=== PATIENT | female | born 1985 | race Caucasian/White ===

== ENCOUNTER 2021-09-21 10:30 | Outpatient (CLI) | payer BC ==
[2021-09-21 12:55] LABS: Hemoglobin 13.9 g/dL (12.0-15.5); Mean Corpuscular HGB CONC 32.7 g/dL (32.0-36.0); Mean Corpuscular Hemoglobin 29.4 pg (27.0-33.0); Mean Platelet Volume 10.2 fl (7.4-10.4); Platelet Count 289 10x3/uL (150-450); RBC Distribution Width 11.9 % (11.5-14.5); Red Blood Cell (RBC) Count 4.72 10x6/uL (3.90-5.03); White Blood Cell (WBC) Count 6.2 10x3/uL (3.5-10.5)
[2021-09-21 13:02] LABS: Bilirubin Neg (Negative); Blood, Urine Negative (Negative); Glucose, Urine (Dipstick) Normal (Negative); Ketone, Urine Negative (Negative); Leukocyte Negative (Negative); Nitrite Negative (Negative); Protein, Urine (Dipstick) Negative (Neg-Trace); Specific Gravity, Urine 1.005 (1.002-1.036); Urobilinogen Normal mg/dL (Less than 2)
[2021-09-21 13:03] LABS: Clarity Clear (Clear)
[2021-09-21 13:42] LABS: BHCG - Serum Negative (NEGATIVE); Pregs Control Background? CLEAR/WHITE (CLR/WHITE); Pregs Control Bar Appear? YES (CONTROL BAR)
[2021-09-22 01:29] LABS: SARS-CoV-2 PCR by NAA Not Detected (NotDetected)
== END 2021-09-21 10:31 | disposition home or self-care (01) ==
LOC: CSHLAB 10:30
PROVIDERS: ATTEND Obstetrics & Gynecology
DX: Z01.812 Encounter for preprocedural laboratory examination (principal); Z20.822 Contact with and (suspected) exposure to COVID-19; N39.3 Stress incontinence (female) (male)
CPT/HCPCS: 81003; 84703; 85027; U0003; U0005

== ENCOUNTER 2021-09-24 05:24 | Observation (INO) | payer BC ==
[2021-09-22 15:35] VITALS: BMI 24.3
[2021-09-24] MEDS ORDERED: Lidocaine 1% MPF 2 ML VIAL ONE (06:10)
[2021-09-24] MEDS ORDERED: Rocuronium Bromide 10 MG/ML (10ML VIAL) ONE (06:15)
[2021-09-24] MEDS ORDERED: Dexamethasone 4 mg/ml Vial ONE (06:15)
[2021-09-24] MEDS ORDERED: Midazolam HCl 2 mg/2 ml Vial ONE ×2 (06:15→06:50)
[2021-09-24] MEDS ORDERED: Fentanyl 250 MCG/5 ML VIAL ONE (06:15)
[2021-09-24] MEDS ORDERED: Ketorolac Tromethamine 30 MG/ML VIAL ONE (06:15)
[2021-09-24] MEDS ORDERED: Lidocaine 1% PF 5 ML VIAL ONE (06:15)
[2021-09-24] MEDS ORDERED: PROPOFOL 20 ML ONE ×2 (06:15)
[2021-09-24] MEDS ORDERED: Ondansetron PF 4 MG/2 ML Vial ONE (06:15)
[2021-09-24] MEDS ORDERED: Lidocaine 4% PF 5 ML AMP ONE (06:16)
[2021-09-24] MEDS ORDERED: Glycopyrrolate 0.2 MG/ML 5 ML SYRINGE ONE (06:18)
[2021-09-24] MEDS ORDERED: EPINEPHrine 1 MG/ML AMP ONE (06:28)
[2021-09-24] MEDS ORDERED: Bupivacaine PF 0.5% 30 ML VIAL ONE (06:28)
[2021-09-24] MEDS ORDERED: Bupivacaine 0.25% HCL 30 ML VIAL ONE (06:29)
[2021-09-24] MEDS ORDERED: Scopolamine 1.5 mg/72 hour Patch ONE (06:30)
[2021-09-24] MEDS ORDERED: Fentanyl 100 MCG/2 ML VIAL ONE (11:26)
[2021-09-24] MEDS ORDERED: Zolpidem Tartrate 5 MG TAB PO PRN (11:45)
[2021-09-24] MEDS ORDERED: diphenhydrAMINE 25 MG CAP PO PRN (11:45)
[2021-09-24] MEDS ORDERED: Acetaminophen 325 MG TAB PO SCH (13:30)
[2021-09-24] MEDS ORDERED: Acetaminophen 500 MG TAB PO SCH ×3 (13:30→17:00)
[2021-09-24] MEDS: Morphine 4 MG/ML VIAL SLOW IVP PRN ×3 (13:44→20:48)
[2021-09-24] MEDS: Ondansetron PF 4 MG/2 ML Vial IVP PRN ×2 (13:44→20:42)
[2021-09-24] MEDS: Lactated Ringer's 1,000 ML IV SCH ×2 (13:45→21:47)
[2021-09-24] MEDS: traMADol HCl 50 MG TAB PO PRN (14:00)
[2021-09-24] MEDS: Simethicone Chewable 80 MG TAB PO PRN (14:01)
[2021-09-24] MEDS: Ketorolac Tromethamine 30 MG/ML VIAL IVP SCH ×2 (16:25→21:41)
[2021-09-24] MEDS: Promethazine 25 MG TAB PO PRN (20:59)
[2021-09-25] MEDS: Ketorolac Tromethamine 30 MG/ML VIAL IVP SCH ×2 (04:47→09:39)
[2021-09-25] MEDS: Lactated Ringer's 1,000 ML IV SCH ×3 (06:29→16:40)
[2021-09-25] MEDS: Levothyroxine Sodium 75 MCG TAB PO SCH (06:49)
[2021-09-25 07:03] LABS: Hemoglobin 10.5 g/dL (12.0-15.5); Mean Corpuscular HGB CONC 33.2 g/dL (32.0-36.0); Mean Corpuscular Hemoglobin 30.2 pg (27.0-33.0); Mean Corpuscular Volume 90.8 fl (81.6-98.3); Mean Platelet Volume 9.7 fl (7.4-10.4); Platelet Count 225 10x3/uL (150-450); RBC Distribution Width 11.9 % (11.5-14.5); Red Blood Cell (RBC) Count 3.48 10x6/uL (3.90-5.03); White Blood Cell (WBC) Count 13.2 10x3/uL (3.5-10.5)
[2021-09-25] MEDS: Ondansetron PF 4 MG/2 ML Vial IVP PRN (09:39)
[2021-09-25] MEDS: Simethicone Chewable 80 MG TAB PO PRN (16:27)
[2021-09-25] MEDS: traMADol HCl 50 MG TAB PO PRN ×2 (16:31→21:18)
[2021-09-25] MEDS: Promethazine 25 MG TAB PO PRN (16:31)
[2021-09-25] MEDS: Ibuprofen 800 MG TAB PO SCH (17:59)
[2021-09-26] MEDS: Ibuprofen 800 MG TAB PO SCH ×2 (01:06→09:22)
[2021-09-26 04:19] LABS: Hemoglobin 9.7 g/dL (12.0-15.5); Mean Corpuscular HGB CONC 32.2 g/dL (32.0-36.0); Mean Corpuscular Hemoglobin 29.9 pg (27.0-33.0); Mean Corpuscular Volume 92.9 fl (81.6-98.3); Mean Platelet Volume 9.7 fl (7.4-10.4); Platelet Count 195 10x3/uL (150-450); RBC Distribution Width 12.4 % (11.5-14.5); Red Blood Cell (RBC) Count 3.24 10x6/uL (3.90-5.03); White Blood Cell (WBC) Count 9.8 10x3/uL (3.5-10.5)
[2021-09-26] MEDS: Lactated Ringer's 1,000 ML IV SCH ×2 (04:58→08:26)
[2021-09-26] MEDS: Levothyroxine Sodium 75 MCG TAB PO SCH (06:13)
[2021-09-26] MEDS: traMADol HCl 50 MG TAB PO PRN (09:22)
[2021-09-26] MEDS: Promethazine 25 MG TAB PO PRN (10:30)
[2021-09-26 14:04] VITALS: BP 117/63; TEMP 98.2
== END 2021-09-26 12:32 | disposition home or self-care (01) ==
LOC: CSHSDC 05:24 → CSHPED 12:48
PROVIDERS: ADMIT Obstetrics & Gynecology; ATTEND Obstetrics & Gynecology
PROC: 0UT94ZZ Resection of Uterus, Percutaneous Endoscopic Approach (ICD-10-PCS; principal; 2021-09-24)
PROC: 0UT64ZZ Resection of Left Fallopian Tube, Percutaneous Endoscopic Approach (ICD-10-PCS; 2021-09-24)
PROC: 0U5F4ZZ Destruction of Cul-de-sac, Percutaneous Endoscopic Approach (ICD-10-PCS; 2021-09-24)
PROC: 0U514ZZ Destruction of Left Ovary, Percutaneous Endoscopic Approach (ICD-10-PCS; 2021-09-24)
PROC: 0U564ZZ Destruction of Left Fallopian Tube, Percutaneous Endoscopic Approach (ICD-10-PCS; 2021-09-24)
PROC: 0USG4ZZ Reposition Vagina, Percutaneous Endoscopic Approach (ICD-10-PCS; 2021-09-24)
PROC: 0TSD0ZZ Reposition Urethra, Open Approach (ICD-10-PCS; 2021-09-24)
PROC: 0JQC0ZZ Repair Pelvic Region Subcutaneous Tissue and Fascia, Open Approach (ICD-10-PCS; 2021-09-24)
PROC: 0JQC0ZZ Repair Pelvic Region Subcutaneous Tissue and Fascia, Open Approach (ICD-10-PCS; 2021-09-24)
PROC: 0KQM0ZZ Repair Perineum Muscle, Open Approach (ICD-10-PCS; 2021-09-24)
DX: N80.0 Endometriosis of uterus (principal); N81.3 Complete uterovaginal prolapse; N39.3 Stress incontinence (female) (male); N80.1 Endometriosis of ovary; N80.2 Endometriosis of fallopian tube; N80.3 Endometriosis of pelvic peritoneum; G43.909 Migraine, unspecified, not intractable, without status migrainosus; K21.9 Gastro-esophageal reflux disease without esophagitis; E03.9 Hypothyroidism, unspecified; Z79.899 Other long term (current) drug therapy; Z88.1 Allergy status to other antibiotic agents; Z88.5 Allergy status to narcotic agent; Z91.018 Allergy to other foods; Z91.040 Latex allergy status; Z90.721 Acquired absence of ovaries, unilateral; Z90.79 Acquired absence of other genital organ(s)
CPT/HCPCS: 36415; 85027; 88305; C1713; C1776; C1781; J0171; J0690; J1100; J1885; J2250; J2270; J2405; J2704; J3010; J7120; Q0169; S0020

== ENCOUNTER 2021-10-02 13:56 | Emergency (ER) | payer BC ==
[2021-10-02] MEDS ORDERED: diphenhydrAMINE 50 MG/ML VIAL ONE (15:06)
== END 2021-10-02 15:56 | disposition home or self-care (01) ==
LOC: CSHERS 13:56
DX: T81.89XA Other complications of procedures, not elsewhere classified, initial encounter (principal)
CPT/HCPCS: 99283; J1200